=== PATIENT | male | born 1990 ===

== ENCOUNTER 2021-02-10 17:41 | Emergency (ER) | payer BC ==
[2021-02-10 18:38] VITALS: BP 145/86; PULSE 91
--- NOTE | 2021-02-10 19:03 | CR ---
Chest: Frontal view of the chest was obtained. Comparison: Prior chest x-rays of 02/05/21 and 03/15/15. Findings: Lung markings are slightly increased from previous exams. No alveolar type change is seen. Heart size and mediastinum are within normal limits. Bony structures appear within normal limits for the patient's age. Impression: 1. Slight increased lung markings from prior study most likely representing mild areas of bronchitis. 2. No alveolar densities of pneumonia are seen. Diagnostic code #3
--- NOTE | 2021-02-10 20:43 | EDM.PDOC ---
ED HPI GENERAL MEDICAL PROBLEM - General Chief Complaint: Respiratory Problem Stated Complaint: DX PNEUMONIA - FEELING WORSE Time Seen by Provider: 02/10/21 18:39 Source of Information: Reports: Patient, RN Notes Reviewed History Limitations: Reports: No Limitations - History of Present Illness INITIAL COMMENTS - FREE TEXT/NARRATIVE: Patient is a 30-year-old male presenting to the emergency department for evaluation of cough, shortness of breath, and "burning "in his chest. He was seen in the clinic 5 days ago and diagnosed with pneumonia. At that time, he was tested for Covid, flu, strep, and had blood work completed as well as a chest x-ray. He was started on azithromycin for treatment of pneumonia which he finished today. Feels that his symptoms have not improved. He does have a history of asthma and states that he has albuterol inhaler at home that he uses occasionally. He has had no fever, chills, nausea, vomiting, or diarrhea. Denies any significant chest pain. - Related Data Allergies Allergy/AdvReac Type Severity Reaction Status Date / Time No Known Allergies Allergy Verified 02/10/21 18:38 Home Meds: Home Meds Albuterol Sulfate [Proair Respiclick] 90 mcg IH Q4H PRN 03/15/15 [History] FLUoxetine [PROzac] 10 mg PO DAILY 02/10/21 [History] predniSONE [Prednisone] 18 mg PO ASDIRECTED #15 tablet 02/10/21 [Rx] Past Medical History Psychiatric History: Reports: Depression - Past Surgical History HEENT Surgical History: Reports: Oral Surgery Other HEENT Surgeries/Procedures: Blossom Teeth Extraction, Adenoidectomy Social & Family History - Tobacco Use Tobacco Use Status *Q: Never Tobacco User - Caffeine Use Caffeine Use: Reports: Coffee, Energy Drinks, Soda - Recreational Drug Use Recreational Drug Use: No - Living Situation & Occupation Living situation: Reports: Single Occupation: Employed ED ROS GENERAL - Review of Systems Review Of Systems: Comprehensive ROS is negative, except as noted in HPI. ED EXAM, GENERAL - Physical Exam Exam: See Below Exam Limited By: No Limitations General Appearance: Alert, WD/WN, No Apparent Distress Respiratory/Chest: No Respiratory Distress, Lungs Clear, Normal Breath Sounds, No Accessory Muscle Use, Chest Non-Tender Cardiovascular: Normal Peripheral Pulses, Regular Rate, Rhythm, No Edema, No Gallop, No JVD, No Murmur, No Rub Neurological: Alert, Oriented, CN II-XII Intact, Normal Cognition, Normal Gait, Normal Reflexes, No Motor/Sensory Deficits Psychiatric: Normal Affect, Normal Mood Skin Exam: Warm, Dry, Intact, Normal Color, No Rash Course - Vital Signs Last Recorded V/S: Last Vital Signs Temp 97.0 F 02/10/21 18:35 Pulse 91 02/10/21 18:35 Resp 22 H 02/10/21 18:35 BP 145/86 H 02/10/21 18:35 Pulse Ox 96 02/10/21 18:35 - Orders/Labs/Meds Labs: Laboratory Tests 02/10/21 02/10/21 02/10/21 Range/Units 19:08 19:08 19:15 WBC 11.08 H (4.23-9.07) K/mm3 RBC 5.17 (4.63-6.08) M/mm3 Hgb 15.2 (13.7-17.5) gm/dl Hct 44.6 (40.1-51.0) % MCV 86.3 (79.0-92.2) fl MCH 29.4 (25.7-32.2) pg MCHC 34.1 (32.2-35.5) g/dl RDW Std Deviation 40.5 (35.1-43.9) fL Plt Count 393 H (163-337) K/mm3 MPV 8.8 L (9.4-12.3) fl Neut % (Auto) 57.2 (34.0-67.9) % Lymph % (Auto) 26.5 (21.8-53.1) % Coffee % (Auto) 8.8 (5.3-12.2) % Eos % (Auto) 6.5 (0.8-7.0) Baso % (Auto) 0.5 (0.1-1.2) % Neut # (Auto) 6.33 H (1.78-5.38) K/mm3 Lymph # (Auto) 2.94 (1.32-3.57) K/mm3 Coffee # (Auto) 0.98 H (0.30-0.82) K/mm3 Eos # (Auto) 0.72 H (0.04-0.54) K/mm3 Baso # (Auto) 0.06 (0.01-0.08) K/mm3 Sodium 137 (136-145) mEq/L Potassium 3.8 (3.5-5.1) mEq/L Chloride 103 (98-107) mEq/L Carbon Dioxide 24 (21-32) mEq/L Anion Gap 13.8 (5-15) BUN 9 (7-18) mg/dL Creatinine 0.8 (0.7-1.3) mg/dL Est Cr Clr Drug Dosing 133.00 mL/min Estimated GFR (MDRD) > 60 (>60) mL/min BUN/Creatinine Ratio 11.3 L (14-18) Glucose 110 H (70-99) mg/dL Calcium 8.9 (8.5-10.1) mg/dL Total Bilirubin 0.2 (0.2-1.0) mg/dL AST 22 (15-37) U/L ALT 56 (16-63) U/L Alkaline Phosphatase 56 (46-116) U/L Troponin I < 0.017 (0.00-0.056) ng/mL C-Reactive Protein 0.4 (<1.0) mg/dL Total Protein 8.1 (6.4-8.2) g/dl Albumin 4.0 (3.4-5.0) g/dl Globulin 4.1 gm/dL Albumin/Globulin Ratio 1.0 (1-2) SARS-CoV-2 RNA ([facility]) Negative (NEGATIVE) - Re-Assessments/Exams Free Text/Narrative Re-Assessment/Exam: Patient is a 30-year-old male presenting to the emergency department for reevaluation. He was seen in the clinic earlier this week and diagnosed with pneumonia. He was started on azithromycin for treatment of this. He has albuterol inhaler at home for his history of asthma. Chest x-ray complete on the 07 May was read as normal per radiologist. I have ordered blood work, Covid test, and chest x-ray. 02/10/21 20:38 Hematology is grossly unremarkable. Covid negative. Chest x-ray shows slight increased lung markings from prior study most likely representing mild areas of bronchitis. Patient has albuterol inhaler at home. I will write for prednisone to take in addition to this. Discussed he is likely suffering from a viral bronchitis. Symptoms not improve within 10 days of onset, he should follow-up in the clinic. Discussed return precautions. Discharge instructions as documented. Departure - Departure Time of Disposition: 20:43 Disposition: Home, Self-Care 01 Condition: Good Clinical Impression: Viral bronchitis - Discharge Information *PRESCRIPTION DRUG MONITORING PROGRAM REVIEWED*: No *COPY OF PRESCRIPTION DRUG MONITORING REPORT IN PATIENT RITA: No Instructions: Acute Bronchitis, Adult Referrals: Heydi Batista PA-C [Primary Care Provider] - Forms: ED Department Discharge Additional Instructions: You were seen in the emergency department today for reevaluation of your upper respiratory symptoms. Work-up included blood work, chest x-ray, Covid test. Results your blood work and Covid test were normal. Chest x-ray did show evidence of bronchitis. This is likely viral in nature. You have been started on prednisone for treatment of this. First dose was given in the ER. Take subsequent doses as prescribed. Continue to use your albuterol inhaler every 4 hours at home as needed. If symptoms fail to improve significantly by 10 days from the onset, recommend follow-up in the clinic. Return to ER for any new or worsening symptoms of concern. Sepsis Event Note (ED) - Evaluation Sepsis Screening Result: No Definite Risk - Focused Exam Vital Signs: Vital Signs Temp Pulse Resp BP Pulse Ox 02/10/21 18:35 97.0 F 91 22 H 145/86 H 96
[2021-02-10] MEDS ORDERED: predniSONE 20 MG Tab PO ONE (20:51)
== END 2021-02-10 21:00 | disposition home or self-care (01) ==
LOC: JD.ED 17:41
DX: J20.8 Acute bronchitis due to other specified organisms (principal); Z20.822 Contact with and (suspected) exposure to COVID-19
CPT/HCPCS: 36415; 71045; 80053; 84484; 85025; 86140; 87635; 99283; J7512; U0002